=== PATIENT | male | born 1960 | race Caucasian/White ===

== ENCOUNTER → 2019-12-18 | Outpatient (CLI) | payer OTHER ==
--- NOTE | 2019-12-21 07:30 | REP ---
Clinical: Pain. Technique: Internal rotation, external rotation, and Y view of the left shoulder. Findings: Age-related changes are appreciated including very subtle cortical irregularity at the acromioclavicular joint and mild sclerotic changes to the glenoid rim. The subacromial space is normal. No acute fracture or dislocation is appreciated. Impression: Age-related degenerative changes. Electronically Signed by Hunter Henderson MD 12/18/2019 11:47 A
== END ==
LOC: M WUC 11:38
PROVIDERS: ATTEND Nurse Practitioner Family
DX: M25.812 Other specified joint disorders, left shoulder (principal)

== ENCOUNTER → 2024-08-03 | Outpatient (REF) | payer OTHER | LOC: M SFHCDERM 11:22 | PROVIDERS: ATTEND Nurse Practitioner Family | DX: D49.2 Neoplasm of unspecified behavior of bone, soft tissue, and skin (principal) ==